=== PATIENT | male | born 1995 | race Caucasian/White ===

== ENCOUNTER 2021-08-17 11:10 | Emergency (ER) | payer OTHER ==
[~2021-08-17] VITALS: Ht 180.3 cm; Wt 72.6 kg
[2021-08-17 11:10] VITALS: BP_SYST 115
[2021-08-17] MEDS ORDERED: DICY10CA13 PO (11:41)
[2021-08-17] MEDS ORDERED: ONDA-8 TL (11:41)
== END 2021-08-17 11:52 | disposition home or self-care (01) ==
LOC: SED 11:10
DX: R11.2 Nausea with vomiting, unspecified (principal); R19.7 Diarrhea, unspecified
CPT/HCPCS: 99283